=== PATIENT | female | born 1985 | race African-American/Black ===

== ENCOUNTER 2016-05-25 18:27 | Emergency (ER) | payer OTHER ==
[2016-05-25 18:43] VITALS: BP 107/70
--- NOTE | 2016-05-25 20:01 | UC ---
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 SINCE THAT TIME PAIN WITH TWISTING, RADIATES FROM LOW BACK DOWN INTO LEFT LEG. NO FEVER. NO LOSS OF CONTROL OF BLADDER OR BOWELS. - History of Current Complaint Chief Complaint: UCBackPain Stated Complaint: BACK PAIN Time Seen by Provider: 05/25/16 18:55 Hx Obtained From: Patient Hx Last Menstrual Period: depo Onset/Duration: Sudden Onset, Lasting Days, Still Present Timing: Intermittent Severity Initially: Moderate Severity Currently: Moderate Pain Intensity: 5 Pain Scale Used: 0-10 Numeric Back Pain: Is Discrete @ - LEFT LOW BACK, Radiates To - LEFT LEG Character: Dull, Aching, Spasmodic Aggravating: Movement, Lifting, Bending Alleviating: Position Associated Signs And Symptoms: Negative: Swelling, Redness, Fever, Numbness, Bladder Incontinence, Bowel Incontinence Related History: Previous Back Injury - Risk Factors AAA Risk Factors: Negative TAD Risk Factors: Negative Cauda Equina Risk Factors: Negative Epidural Abscess Risk Factors: Negative - Allergies/Home Medications Allergies/Adverse Reactions: Allergies Allergy/AdvReac Type Severity Reaction Status Date / Time No Known Allergies Allergy Verified 05/25/16 18:36 PMH/Surg Hx/FS Hx/Imm Hx Previously Healthy: Yes Endocrine History Of: Denies: Diabetes, Thyroid Disease, Hyperthyroidism, Hypothyroidism, Dyslipidemia Cardiovascular History Of: Denies: Cardiac Disorders, Hypertension, Pacemaker/ICD, Myocardial Infarction , Congestive Heart Failure, Atrial Fibrillation, Deep Vein Thrombosis, Bleeding Disorders Respiratory History Of: Denies: COPD, Asthma, Bronchitis, Pneumonia, Pulmonary Embolism GI/ History Of: Reports: Gastroesophageal Reflux - With certain foods. Denies: Ulcer, Gastrointestinal Bleed, Gall Bladder Disease, Kidney Stones, Diverticulitis, Renal Disease, Urosepsis Neurological History Of: Denies: TIA, CVA, Dementia, Seizures, Migraine Psychological History Of: Denies: Anxiety, Depression, Bipolar Disorder, Schizophrenia, Post Traumatic Stress Disorder Cancer History Of: Denies: Lung Cancer, Colorectal Cancer, Breast Cancer, Prostate Cancer, Cervical Cancer Other History Of: Negative For: HIV, Hepatitis B, Hepatitis C, Anticoagulant Therapy - Surgical History Surgical History: Yes Surgery Procedure, Year, and Place: 2 C-SECTIONS, TONSILLECTOMY - Family History Known Family History: Positive: Cardiac Disease, Hypertension, Diabetes - Social History Occupation: Employed Full-time Lives: With Family Alcohol Use: None Substance Use Type: None Smoking Status (MU): Light Every Day Tobacco Smoker Type: Cigarettes Amount Used/How Often: 1/2 ppd Household Exposure Type: Cigarettes Cessation Counseling: Patient Advised to Stop - Immunization History Most Recent Influenza Vaccination: none Review of Systems Constitutional: Negative Skin: Negative Eyes: Negative ENT: Negative Respiratory: Negative Cardiovascular: Negative Gastrointestinal: Negative Genitourinary: Negative Motor: Negative Neurovascular: Negative Musculoskeletal: Arthralgia, Myalgia Neurological: Negative Psychological: Negative All Other Systems Reviewed And Are Negative: Yes Physical Exam Triage Information Reviewed: Yes Appearance: Well-Appearing, No Pain Distress, Well-Nourished Vital Signs: Initial Vital Signs Temp 97.3 F 05/25/16 18:38 Pulse 81 05/25/16 18:38 Resp 18 05/25/16 18:38 BP 107/70 05/25/16 18:38 Pulse Ox 100 05/25/16 18:38 Vital Signs Reviewed: Yes Eye Exam: Normal Eyes: Positive: Conjunctiva Clear ENT Exam: Normal ENT: Positive: Normal ENT inspection, Hearing grossly normal, TMs normal Dental Exam: Normal Neck exam: Normal Respiratory Exam: Normal Respiratory: Positive: Chest non-tender, Lungs clear, Normal breath sounds, No respiratory distress, No accessory muscle use Cardiovascular Exam: Normal Cardiovascular: Positive: RRR, No Murmur, Pulses Normal, Brisk Capillary Refill Abdominal Exam: Normal Abdomen Description: Positive: Nontender, No Organomegaly Musculoskeletal: Positive: Strength Intact, ROM Intact, No Edema, Other: - POSITIVE LEFT STRAIGHT LEG RAISE 15DEGREES; RIGHT [id number] LEG RAISE NEGATIVE Neurological Exam: Normal Psychological Exam: Normal Skin Exam: Normal Back Pain Course/Dx - Differential Dx/Diagnosis Differential Diagnosis/HQI/PQRI: Strain, Sprain Provider Diagnoses: LOW BACK STRAIN. LEFT SIDED SCIATICA Discharge - Discharge Plan Condition: Stable Disposition: HOME Prescriptions: Cyclobenzaprine TAB* [Flexeril TAB*] 10 mg PO TID PRN #12 tab PRN Reason: Spasms Naproxen [Naproxen 500 MG TABS] 500 mg PO BID #10 tab traMADol TAB* [Ultram*] 50 mg PO Q8H PRN #15 tab MDD three tabs PRN Reason: Pain Patient Education Materials: Sciatica (ED), Low Back Strain (ED), Lower Back Exercises (ED) Forms: *Work Release Referrals: No Primary Care Phys,NOPCP [Primary Care Provider] - Additional Instructions: PHYSICAL THERAPY REFERRAL: You have been prescribed physical therapy. Treatments may include stretching, exercise, application of heat or cold, and other modalities. After an injury, PT can reduce swelling and pain. In recovery, PT is used to restore mobility and strength. Your specific treatment goals are: Reduction of Swelling (EGS, US, ice as needed) ___x__ Pain Reduction (EGS, US, ice as needed) ____x_ TENS Pack Fitting and Instruction Wound Hydrotherapy ___x__ Preservation of Mobility ___x__ Sikh of Mobility ___x__ Strength Sikh ____x_ Work or Sports Hardening This instruction sheet also serves as your PHYSICAL THERAPY REFERRAL! Please take it with you to the therapist, so he/she will be aware of your diagnosis and treatment plan. You may see the physical therapist of your choice for these treatments, but may wish to check with your insurance to be sure the provider you select is covered. It's important to see the doctor to whom you have been referred for follow up.
== END 2016-05-25 19:42 | disposition home or self-care (01) ==
LOC: UCEAST 18:27
DX: S39.012A Strain of muscle, fascia and tendon of lower back, initial encounter (principal); X50.0XXA Overexertion from strenuous movement or load, initial encounter; Y93.F2 Activity, caregiving, lifting; Y92.129 Unspecified place in nursing home as the place of occurrence of the external cause; Y99.0 Civilian activity done for income or pay; M54.32 Sciatica, left side; F17.210 Nicotine dependence, cigarettes, uncomplicated
CPT/HCPCS: 99212; G0463

== ENCOUNTER 2016-07-28 11:18 | Emergency (ER) | payer OTHER ==
[2016-07-28 12:47] VITALS: BP 135/68
--- NOTE | 2016-07-28 12:51 | UC ---
Throat Pain/Nasal Cal HPI - HPI Summary HPI Summary: works nights as a nurses aid, has sorethroat, body aches, chills and cough no influenza vaccine this year - History of Current Complaint Chief Complaint: UCRespiratory Stated Complaint: HEADACHE THROAT PAIN Hx Obtained From: Patient Hx Last Menstrual Period: depo ?: No Onset/Duration: Sudden Onset, Lasting Days Severity: Moderate Cough: Productive Associated Signs & Symptoms: Positive: Sinus Discomfort, Nasal Discharge, Other - body aches - Allergies/Home Medications Allergies/Adverse Reactions: Allergies Allergy/AdvReac Type Severity Reaction Status Date / Time No Known Allergies Allergy Verified 05/25/16 18:36 Home Medications: Home Medications Ibuprofen TAB* [Motrin TAB* 800 MG] 800 mg PO ONCE 07/28/16 [History Confirmed 07/28/16] PMH/Surg Hx/FS Hx/Imm Hx Previously Healthy: No Endocrine History Of: Denies: Diabetes, Thyroid Disease, Hyperthyroidism, Hypothyroidism, Dyslipidemia Cardiovascular History Of: Denies: Cardiac Disorders, Hypertension, Pacemaker/ICD, Myocardial Infarction , Congestive Heart Failure, Atrial Fibrillation, Deep Vein Thrombosis, Bleeding Disorders Respiratory History Of: Denies: COPD, Asthma, Bronchitis, Pneumonia, Pulmonary Embolism GI/ History Of: Reports: Gastroesophageal Reflux - With certain foods. Denies: Ulcer, Gastrointestinal Bleed, Gall Bladder Disease, Kidney Stones, Diverticulitis, Renal Disease, Urosepsis Neurological History Of: Denies: TIA, CVA, Dementia, Seizures, Migraine Psychological History Of: Denies: Anxiety, Depression, Bipolar Disorder, Schizophrenia, Post Traumatic Stress Disorder Cancer History Of: Denies: Lung Cancer, Colorectal Cancer, Breast Cancer, Prostate Cancer, Cervical Cancer Other History Of: Negative For: HIV, Hepatitis B, Hepatitis C, Anticoagulant Therapy - Surgical History Surgical History: Yes Surgery Procedure, Year, and Place: 2 C-SECTIONS, TONSILLECTOMY - Family History Known Family History: Positive: Cardiac Disease, Hypertension, Diabetes - Social History Occupation: Employed Full-time Lives: With Family Alcohol Use: None Substance Use Type: None Smoking Status (MU): Light Every Day Tobacco Smoker Type: Cigarettes Amount Used/How Often: 1/2 ppd Have You Smoked in the Last Year: Yes Household Exposure Type: Cigarettes Cessation Counseling: Counseled 3+Min - 10 Min - Immunization History Most Recent Influenza Vaccination: none Review of Systems Constitutional: Negative, Fever, Chills, Fatigue Skin: Negative Eyes: Negative ENT: Sore Throat, Nasal Discharge Respiratory: Cough Cardiovascular: Negative Gastrointestinal: Negative Genitourinary: Negative Motor: Negative Neurovascular: Negative Musculoskeletal: Negative Neurological: Negative Psychological: Negative All Other Systems Reviewed And Are Negative: Yes Physical Exam Triage Information Reviewed: Yes Appearance: Well-Appearing, No Pain Distress, Well-Nourished Vital Signs: Initial Vital Signs Temp 97.7 F 07/28/16 12:43 Pulse 83 07/28/16 12:43 Resp 18 07/28/16 12:43 BP 135/68 07/28/16 12:43 Pulse Ox 99 07/28/16 12:43 Vital Signs Reviewed: Yes Eye Exam: Normal Eyes: Positive: Conjunctiva Clear ENT Exam: Normal ENT: Positive: Normal ENT inspection, Hearing grossly normal, Pharynx normal, TMs normal. Negative: Nasal congestion, Nasal drainage, Tonsillar swelling, Tonsillar exudate, Trismus, Muffled/hoarse voice Dental Exam: Normal Neck exam: Normal Neck: Positive: Supple, Nontender, No Lymphadenopathy Respiratory Exam: Normal Respiratory: Positive: Chest non-tender, Lungs clear, Normal breath sounds, No respiratory distress, No accessory muscle use Cardiovascular Exam: Normal Cardiovascular: Positive: RRR, No Murmur, Pulses Normal, Brisk Capillary Refill Musculoskeletal Exam: Normal Musculoskeletal: Positive: Strength Intact, ROM Intact, No Edema Neurological Exam: Normal Neurological: Positive: Alert, Muscle Tone Normal Psychological Exam: Normal Skin Exam: Normal Diagnostics - Laboratory Diagnostic Studies Completed/Ordered: RST & Influneza A/B (-) Throat Pain/Nasal Course/Dx - Course Assessment/Plan: increase fluids, tylenol, ibuprofen, mucinex d, follow with pcp re-check prn - Differential Dx/Diagnosis Differential Diagnosis/HQI/PQRI: Pharyngitis, Sinusitis, URI Provider Diagnoses: Viral illness,URI Discharge - Discharge Plan Condition: Stable Disposition: HOME Patient Education Materials: Upper Respiratory Infection (ED), Viral Syndrome ( ED) Referrals: [facility] [facility]ERR[facility] [Outside] - 1 Week No Primary Care Phys,NOPCP [Primary Care Provider] -
== END 2016-07-28 13:34 | disposition home or self-care (01) ==
LOC: UCEAST 11:18
DX: B34.9 Viral infection, unspecified (principal); J06.9 Acute upper respiratory infection, unspecified; K21.9 Gastro-esophageal reflux disease without esophagitis; F17.210 Nicotine dependence, cigarettes, uncomplicated
CPT/HCPCS: 87502; 87651; 99211; G0463

== ENCOUNTER 2016-10-04 08:33 | Emergency (ER) | payer SELFPAY ==
[2016-10-04 08:40] VITALS: BP 117/72
--- NOTE | 2016-10-04 09:21 | UC ---
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 HAS HAD PAIN SINCE THEN. NO NUMBNESS OR TINGLING. - History Of Current Complaint Chief Complaint: UCUpperExtremity Stated Complaint: WRIST INJURY Time Seen by Provider: 10/04/16 09:12 Hx Obtained From: Patient Hx Last Menstrual Period: depo shot Onset/Duration: Sudden Onset, Lasting Hours, Still Present Severity Initially: Moderate Severity Currently: Moderate Pain Intensity: 9 - SITTING IN ROOM - AIN NO DISTRESS AT ALL Pain Scale Used: 0-10 Numeric Character Of Pain: Sharp Aggravating Factor(s): Movement Alleviating: Rest Associated Signs And Symptoms: Negative: Swelling, Redness Related History: Dominant Hand Right - Allergies/Home Medications Allergies/Adverse Reactions: Allergies Allergy/AdvReac Type Severity Reaction Status Date / Time No Known Allergies Allergy Verified 05/25/16 18:36 Home Medications: Home Medications Iawrvkb-Cmvswyqxzncro-Tvyjwvlv [Excedrin Extra Strength 250-250-65 mg] 2 tab PO PRN 10/04/16 [History] PMH/Surg Hx/FS Hx/Imm Hx Previously Healthy: Yes Other History Of: Negative For: HIV, Hepatitis B, Hepatitis C, Anticoagulant Therapy - Surgical History Surgical History: Yes Surgery Procedure, Year, and Place: 2 C-SECTIONS, TONSILLECTOMY - Family History Known Family History: Positive: Cardiac Disease, Hypertension, Diabetes - Social History Alcohol Use: None Substance Use Type: None Smoking Status (MU): Light Every Day Tobacco Smoker Type: Cigarettes Amount Used/How Often: 1/2 ppd Have You Smoked in the Last Year: Yes Household Exposure Type: Cigarettes - Immunization History Most Recent Influenza Vaccination: none Review of Systems Constitutional: Negative Skin: Negative Respiratory: Negative Cardiovascular: Negative Gastrointestinal: Negative Musculoskeletal: Arthralgia, Decreased ROM All Other Systems Reviewed And Are Negative: Yes Physical Exam Triage Information Reviewed: Yes Appearance: Well-Appearing, No Pain Distress, Well-Nourished Vital Signs: Initial Vital Signs Temp 98.1 F 10/04/16 08:39 Pulse 88 10/04/16 08:39 Resp 16 10/04/16 08:39 BP 117/72 10/04/16 08:39 Pulse Ox 100 10/04/16 08:39 Vital Signs Reviewed: Yes Eyes: Positive: Conjunctiva Clear ENT: Positive: Hearing grossly normal Neck: Positive: Supple Respiratory: Positive: No respiratory distress, No accessory muscle use Cardiovascular: Positive: Pulses Normal Abdomen Description: Positive: Soft Musculoskeletal: Positive: No Edema, ROM Limited @ - LEFT WRIST, Other: - MINIMALLY TTP LEFT WRIST ULNAR SIDE Neurological: Positive: Alert Psychological: Positive: Age Appropriate Behavior Skin: Negative: rashes Hand/Wrist Course/Dx - Differential Dx/Diagnosis Provider Diagnoses: LEFT WRIST SPRAIN Discharge - Discharge Plan Condition: Stable Disposition: HOME Patient Education Materials: Wrist Sprain (ED) Forms: *Work Release Referrals: Emmanuelle Parsons MD [Medical Doctor] - If Needed Additional Instructions: BE SURE TO GO THROUGH SLOW RANGE OF MOTION AND STRETCHING EXERCISES DAILY YOU ARE ABLE TO PREVENT STIFFENING UP AND MAKING THE DISCOMFORT WORSE. WEAR THE SPLINT CONSISTENTLY FOR THE FIRST 2-3 DAYS, THEN NEEDED FOR SUPPORT AND COMFORT. FOLLOW-UP WITH ORTHO IF YOU ARE NOT IMPROVING EXPECTED OVER THE NEXT 1-2 WEEKS. CALL THE NUMBER BELOW FOR ASSISTANCE IN ESTABLISHING WITH A PCP An additional resource available to assist in finding the appropriate physician for your health care needs is the [facility] ([facility]). You may contact them by calling [phone].
== END 2016-10-04 09:33 | disposition home or self-care (01) ==
LOC: UCEAST 08:33
DX: S63.502A Unspecified sprain of left wrist, initial encounter (principal); X58.XXXA Exposure to other specified factors, initial encounter; Y93.F9 Activity, other caregiving; Y92.10 Unspecified residential institution as the place of occurrence of the external cause; Y99.0 Civilian activity done for income or pay
CPT/HCPCS: 99212; G0463

== ENCOUNTER 2017-01-01 19:37 | Emergency (ER) | payer OTHER ==
[2017-01-01 19:45] VITALS: BP 123/80
[2017-01-01] MEDS ORDERED: Albuterol HFA INHALER* 8 gm MDI INH PRN (19:57)
[2017-01-01] MEDS ORDERED: Amoxicillin/Clavulanate TAB* 875 MG PO ONE ×2 (19:58→20:10)
[2017-01-01] MEDS ORDERED: Albuterol HFA INHALER* 8 gm MDI INH ONE (20:07)
--- NOTE | 2017-01-01 20:45 | UC ---
Fred Prince Nikita, scribed for Pieter Meza MD on 01/01/17 at 2010 . General HPI - HPI Summary HPI Summary: This patient is a 31 year old F presenting to [facility] with a chief complaint of a nonproductive cough and a NORTON (frontal) since a week ago. The patient rates the pain 10/10 in severity. Symptoms aggravated by lying down. Symptoms alleviated by nothing. Patient reports cold like symptoms (nonproductive cough from the chest), congestion in the sinuses, head and chest, sore throat (resolved a few days ago), SOB, wheezing (for a few days), and watery eyes. Pt denies have asthma. 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 Pt is a smoker and non -drinker. Pt doesnt know if she is . PMHx of bronchitis. - History of Current Complaint Chief Complaint: UCGeneralIllness Stated Complaint: COUGH,HEADACHE Hx Obtained From: Patient Hx Last Menstrual Period: Depo Provera Onset/Duration: Sudden Onset, Lasting Weeks - 1 week ago, Still Present Timing: Constant Onset Severity: Severe Current Severity: Severe Pain Intensity: 10 Aggravating: Lying down. Alleviating: Nothing. Associated Signs & Symptoms: Positive: Other - Patient reports cold like symptoms (nonproductive cough from the chest), congestion in the sinuses, head and chest, sore throat (resolved a few days ago), SOB, wheezing (for a few days) , and watery eyes. - Allergy/Home Medications Allergies/Adverse Reactions: Allergies Allergy/AdvReac Type Severity Reaction Status Date / Time No Known Allergies Allergy Verified 05/25/16 18:36 PMH/Surg Hx/FS Hx/Imm Hx Other Cardiovascular History: NEGATIVE: CAD Respiratory History: Bronchitis Other History Of: Negative For: HIV, Hepatitis B, Hepatitis C, Anticoagulant Therapy - Surgical History Surgical History: Yes Surgery Procedure, Year, and Place: 2 C-SECTIONS, TONSILLECTOMY - Family History Known Family History: Positive: Cardiac Disease, Hypertension, Diabetes - Social History Alcohol Use: None Substance Use Type: None Smoking Status (MU): Light Every Day Tobacco Smoker Type: Cigarettes Amount Used/How Often: 5 cigs per day Have You Smoked in the Last Year: Yes Household Exposure Type: Cigarettes - Immunization History Most Recent Influenza Vaccination: none Review of Systems Eyes: Other - watery eyes ENT: Sore Throat, Sinus Congestion Respiratory: Shortness Of Breath, Cough - Non-productive in the chest, Other - Congestion in head and chest, wheezing Cardiovascular: Other Neurological: Headache - Frontal All Other Systems Reviewed And Are Negative: Yes Physical Exam Triage Information Reviewed: Yes Vital Signs: Initial Vital Signs Temp 97.9 F 01/01/17 19:40 Pulse 91 01/01/17 19:40 Resp 18 01/01/17 19:40 BP 123/80 01/01/17 19:40 Pulse Ox 100 01/01/17 19:40 - Additional Comments The patient is in no acute distress. The skin is warm and dry. HEENT: The pupils are equal and reactive. Post nasal drip. Erythema in throat. The tympanic membranes are intact. No rhinorrhea. Left frontal sinuses are are tenderness to percussion. Neck is supple. Respiratory: Lungs have diffuse wheezing throughout. No rhonchi. No rales. Cardiovascular: Heart is regular rate and rhythm. Musculoskeletal: No swelling in legs. Course/Dx - Course Course Of Treatment: This patient is a 31 year old F presenting to [facility] with a chief complaint of a nonproductive cough and a NORTON (frontal) since a week ago. The patient rates the pain 10/10 in severity. Symptoms aggravated by lying down. Symptoms alleviated by nothing. Patient reports cold like symptoms ( nonproductive cough from the chest), congestion in the sinuses, head and chest, sore throat (resolved a few days ago), SOB, wheezing (for a few days), and watery eyes. Pt denies have asthma. 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 Pt is a smoker and non-drinker. Pt doesnt know if she is . PMHx of bronchitis. Pt will be discharged home with Antibiotics, Augmentin and an Albuterol inhaler and instructions to follow up with PCP. Pt is agreeable with this plan. - Differential Dx - Multi-Symptom Differential Diagnoses: Other - asthmatic bronchitis, uri Provider Diagnoses: Acute Sinusitis/Bronchitis Discharge - Discharge Plan Condition: Stable Disposition: HOME Prescriptions: Amoxicillin/Clavulanate TAB* [Augmentin TAB 875*] 875 mg PO BID #20 tab Patient Education Materials: Sinusitis (ED), Acute Bronchitis (ED) Referrals: Vipul Florez MD [Primary Care Provider] - 3 Days The documentation as recorded by the Fred oleary Nikita accurately reflects the service I personally performed and the decisions made by me, Pieter Meza MD.
[2017-01-01] MEDS ORDERED: Albuterol HFA INHALER* 8 gm MDI INH SCH (21:00)
== END 2017-01-01 20:14 | disposition home or self-care (01) ==
LOC: UCEAST 19:37
DX: J01.90 Acute sinusitis, unspecified (principal); J40 Bronchitis, not specified as acute or chronic; F17.210 Nicotine dependence, cigarettes, uncomplicated
CPT/HCPCS: 99213; A9270-GY; G0463

== ENCOUNTER 2017-05-27 07:42 | Emergency (ER) | payer OTHER ==
[2017-05-27 07:57] VITALS: BP 119/79
--- NOTE | 2017-05-27 08:43 | UC ---
Back Pain HPI - HPI Summary HPI Summary: 32 y/o female presents to the urgent care c/o lower back pain Pt here with severe pain radiating from lower back down L leg. 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 - History of Current Complaint Chief Complaint: UCBackPain Stated Complaint: BACK AND LEG PAIN Time Seen by Provider: 05/27/17 08:38 Hx Last Menstrual Period: does not get them Pain Intensity: 7 - Allergies/Home Medications Allergies/Adverse Reactions: Allergies Allergy/AdvReac Type Severity Reaction Status Date / Time No Known Allergies Allergy Verified 05/27/17 07:49 PMH/Surg Hx/FS Hx/Imm Hx Other History Of: Negative For: HIV, Hepatitis B, Hepatitis C, Anticoagulant Therapy - Surgical History Surgical History: Yes Surgery Procedure, Year, and Place: 2 C-SECTIONS, TONSILLECTOMY - Family History Known Family History: Positive: Cardiac Disease, Hypertension, Diabetes - Social History Alcohol Use: None Substance Use Type: None Smoking Status (MU): Light Every Day Tobacco Smoker Type: Cigarettes Amount Used/How Often: 5 cigs per day Have You Smoked in the Last Year: Yes Household Exposure Type: Cigarettes - Immunization History Most Recent Influenza Vaccination: none Physical Exam Triage Information Reviewed: Yes Vital Signs: Initial Vital Signs Temp 97.9 F 05/27/17 07:50 Pulse 98 05/27/17 07:50 Resp 16 05/27/17 07:50 BP 119/79 05/27/17 07:50 Pulse Ox 100 05/27/17 07:50 - Additional Comments General: Patient is a well developed --- without any distress that is laying comfortably in the stretcher. Skin: [place], warm, dry HEAD AND FACE: No signs of trauma. EYES: PERRLA, EOMI x 2. EARS: Hearing grossly intact. MOUTH: Oropharynx within normal limits. NECK: Supple, trachea is midline, no adenopathy, no JVD. CHEST: Symmetric, no tenderness at palpation LUNGS: CTA bilaterally, no rales, rhonchi or wheezing CVS: RRR, no murmur, rub, or gallop ABDOMEN: soft and Nontender without masses, no guarding or rebound. Bowel sounds are active. No Hepato-splenomegaly. No signs of inguinal hernias. BACK: Patient walked into the urgent care room with symmetric ambulation, No signs of limping, antalgic, able to bear weight. No signs of trauma, no soft tissue or muscle tenderness, ---- spasm in the Paraspinal muscles of the (lumbar ) spine. No masses palpated. Point tenderness at ----, No CVAT, no flank ecchymosis . No sacroiliac notch tenderness, No saddle anesthesia ROM: flexion/ extension/ lateral bending and rotation, note if limited or causes pain Straight Leg Raise: positive if radiates below knee at --- degrees. Patellar reflexes: brisk, symmetric Muscle strength lower extremities. Dorsiflexion/ plantar flexion of ankles. Heel/ toe walk Lower extremities: Femoral, popliteal, posterior tibial, and dorsalis pedis pulses with in normal, Rectal: Patient refused the exam. (Normal anal wink, rectal tone within normal limits). Neurological: WNL Psychological: WNL Skin: dry and warm Discharge - Discharge Plan Referrals: Vipul Florez MD [Primary Care Provider] -
[2017-05-27] MEDS ORDERED: Ibuprofen TAB* 400 MG PO ONE (08:54)
--- NOTE | 2017-05-27 09:22 | RAD ---
INDICATION: Low back pain. Injury. COMPARISON: None TECHNIQUE: Routine PA, lateral, and oblique imaging was performed . FINDINGS: Bones: There are no acute bony findings. There are no significant osteoarthritic findings. 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 IMPRESSION: NO ACUTE BONY FINDINGS.
== END 2017-05-27 09:39 | disposition home or self-care (01) ==
LOC: UCEAST 07:42
DX: M54.5 Low back pain (principal); F17.210 Nicotine dependence, cigarettes, uncomplicated
CPT/HCPCS: 72110; 99212; A9270-GY; G0463

== ENCOUNTER 2018-09-15 08:46 | Emergency (ER) | payer OTHER ==
[2018-09-15 08:57] VITALS: BP 129/86
[2018-09-15] MEDS ORDERED: Penicillin VK TAB* 250 MG PO ONE (09:08)
--- NOTE | 2018-09-15 09:09 | UC ---
[facility] HPI - HPI Summary HPI Summary: 33 yo female broke a left lower tooth about a month ago now motrin not helping no fever or facial swelling no n/v/d - History of Current Complaint Chief Complaint: UCDentalProblem Stated Complaint: TOOTH PAIN Time Seen by Provider: 09/15/18 09:01 Hx Obtained From: Patient Hx Last Menstrual Period: 3 years ago - gets depo shot Onset/Duration: Gradual Onset Severity: Severe Pain Intensity: 9 Pain Scale Used: 0-10 Numeric Aggravating Factor(s): Heat, Cold, Chewing Alleviating Factor(s): Nothing Dental: 1 - fx with exposed root, many absent teeth - Allergies/Home Medications Allergies/Adverse Reactions: Allergies Allergy/AdvReac Type Severity Reaction Status Date / Time No Known Allergies Allergy Verified 09/15/18 08:57 Home Medications: Home Medications Ibuprofen TAB* [Advil TAB*] 800 mg PO ONCE PRN 09/15/18 [History Confirmed 09/15] PMH/Surg Hx/FS Hx/Imm Hx Previously Healthy: Yes Other History Of: Negative For: HIV, Hepatitis B, Hepatitis C, Anticoagulant Therapy - Surgical History Surgical History: Yes Surgery Procedure, Year, and Place: 2 C-SECTIONS, TONSILLECTOMY - Family History Known Family History: Positive: Cardiac Disease, Hypertension, Diabetes - Social History Alcohol Use: Occasionally Substance Use Type: None Smoking Status (MU): Light Every Day Tobacco Smoker Type: Cigarettes Amount Used/How Often: 5 cigs per day Have You Smoked in the Last Year: Yes Household Exposure Type: Cigarettes - Immunization History Most Recent Influenza Vaccination: none Review of Systems All Other Systems Reviewed And Are Negative: Yes Constitutional: Positive: Negative Skin: Positive: Negative Eyes: Positive: Negative ENT: Positive: Dental Pain Respiratory: Positive: Negative Cardiovascular: Positive: Negative Gastrointestinal: Positive: Negative Genitourinary: Positive: Negative Motor: Positive: Negative Neurovascular: Positive: Negative Musculoskeletal: Positive: Negative Neurological: Positive: Negative Psychological: Positive: Negative Physical Exam Triage Information Reviewed: Yes Appearance: Well-Appearing, No Pain Distress, Well-Nourished Vital Signs: Initial Vital Signs Temp 98.2 F 09/15/18 08:48 Pulse 94 09/15/18 08:48 Resp 16 09/15/18 08:48 BP 129/86 09/15/18 08:48 Pulse Ox 100 09/15/18 08:48 Vital Signs Reviewed: Yes Eye Exam: Normal Eyes: Positive: Conjunctiva Clear ENT: Positive: Hearing grossly normal, Uvula midline. Negative: Nasal congestion, Nasal drainage, Tonsillar swelling, Tonsillar exudate, Dental tenderness, Sinus tenderness Dental: Positive: Other: - see image Neck: Positive: Supple, Nontender, No Lymphadenopathy Respiratory: Positive: Lungs clear, Normal breath sounds, No respiratory distress Cardiovascular: Positive: RRR, No Murmur Musculoskeletal: Positive: ROM Intact, No Edema Neurological: Positive: Alert Psychological Exam: Normal Skin Exam: Normal Dental Complaint Course/Dx - Differential Dx/Diagnosis Provider Diagnosis: Pain, dental Discharge - Sign-Out/Discharge Documenting (check all that apply): Patient Departure All imaging exams completed and their final reports reviewed: No Studies - Discharge Plan Condition: Stable Disposition: HOME Prescriptions: HYDROcodone/ACETAMIN 5-325 MG* [[place] 5-325 TAB*] 1 tab PO Q4H PRN #10 tab MDD 4 PRN Reason: Pain Penicillin VK 500 MG TAB(NF) [Penicillin VK 500 mg Tab] 500 mg PO QID #28 tab Patient Education Materials: Toothache (ED) Referrals: Vipul Florez MD [Primary Care Provider] - Additional Instructions: see dentist first available appt recheck for new or worsening symptoms continue ibuprofen - Billing Disposition and Condition Condition: STABLE Disposition: Home
== END 2018-09-15 09:23 | disposition home or self-care (01) ==
LOC: UCEAST 08:46
DX: K08.89 Other specified disorders of teeth and supporting structures (principal); K03.81 Cracked tooth; F17.210 Nicotine dependence, cigarettes, uncomplicated
CPT/HCPCS: 99212; A9270-GY; G0463

== ENCOUNTER 2018-10-06 16:56 | Emergency (ER) | payer OTHER ==
[2018-10-06 17:16] VITALS: BP 116/76
--- NOTE | 2018-10-06 17:21 | UC ---
Throat Pain/Nasal Cal HPI - HPI Summary HPI Summary: sore throat body aches and fever began yesterday---daughter had strep last week - History of Current Complaint Chief Complaint: UCGeneralIllness Stated Complaint: SORETHROAT/FEVER/HEADACHE Time Seen by Provider: 10/06/18 17:11 Hx Obtained From: Patient Hx Last Menstrual Period: 4 years ago ?: No Onset/Duration: Sudden Onset, Lasting Days - 1, Still Present Pain Intensity: 7 Pain Scale Used: 0-10 Numeric Cough: None Associated Signs & Symptoms: Positive: Fever Related History: T & A - Allergies/Home Medications Allergies/Adverse Reactions: Allergies Allergy/AdvReac Type Severity Reaction Status Date / Time No Known Allergies Allergy Verified 10/06/18 17:16 PMH/Surg Hx/FS Hx/Imm Hx Previously Healthy: No GI/ History: Gastroesophageal Reflux Other History Of: Negative For: HIV, Hepatitis B, Hepatitis C, Anticoagulant Therapy - Surgical History Surgical History: Yes Surgery Procedure, Year, and Place: 2 C-SECTIONS, TONSILLECTOMY - Family History Known Family History: Positive: Cardiac Disease, Hypertension, Diabetes - Social History Occupation: Employed Full-time Lives: With Family Alcohol Use: Occasionally Substance Use Type: None Smoking Status (MU): Light Every Day Tobacco Smoker Type: Cigarettes Amount Used/How Often: 5 cigs per day Have You Smoked in the Last Year: Yes Household Exposure Type: Cigarettes - Immunization History Most Recent Influenza Vaccination: none Review of Systems All Other Systems Reviewed And Are Negative: Yes Constitutional: Positive: Fever, Chills, Fatigue Skin: Positive: Negative Eyes: Positive: Negative ENT: Positive: Sore Throat Respiratory: Positive: Negative Cardiovascular: Positive: Negative Gastrointestinal: Positive: Negative Genitourinary: Positive: Negative Motor: Positive: Negative Neurovascular: Positive: Negative Musculoskeletal: Positive: Negative Neurological: Positive: Negative Psychological: Positive: Negative Is Patient Immunocompromised?: No Physical Exam Triage Information Reviewed: Yes Appearance: No Pain Distress, Well-Nourished, Ill-Appearing - mild Vital Signs: Initial Vital Signs Temp 100.1 F 10/06/18 17:11 Pulse 110 10/06/18 17:11 Resp 17 10/06/18 17:11 BP 116/76 10/06/18 17:11 Pulse Ox 98 10/06/18 17:11 Vital Signs Reviewed: Yes Eye Exam: Normal Eyes: Positive: Conjunctiva Clear ENT Exam: Normal ENT: Positive: Normal ENT inspection, Hearing grossly normal, Pharynx normal, TMs normal, Uvula midline. Negative: Nasal congestion, Trismus, Muffled voice, Hoarse voice, Dental tenderness, Sinus tenderness Dental Exam: Normal Neck exam: Normal Neck: Positive: Supple, Nontender, No Lymphadenopathy Respiratory Exam: Normal Respiratory: Positive: Chest non-tender, Lungs clear, Normal breath sounds, No respiratory distress, No accessory muscle use Cardiovascular Exam: Normal Cardiovascular: Positive: RRR, No Murmur, Pulses Normal, Brisk Capillary Refill Musculoskeletal Exam: Normal Musculoskeletal: Positive: Strength Intact, ROM Intact, No Edema Neurological Exam: Normal Neurological: Positive: Alert, Muscle Tone Normal Psychological Exam: Normal Skin Exam: Normal Diagnostics - Laboratory Lab Results: RST + Throat Pain/Nasal Course/Dx - Course Course Of Treatment: amoxicillin, tylenol, ibuprofen increase fluids rest follow with pcp - Differential Dx/Diagnosis Provider Diagnosis: Strep pharyngitis Discharge - Sign-Out/Discharge Documenting (check all that apply): Patient Departure All imaging exams completed and their final reports reviewed: No Studies - Discharge Plan Condition: Stable Disposition: HOME Prescriptions: Amoxicillin PO (*) [Amoxicillin 500 MG CAP*] 500 mg PO Q12H #19 cap Patient Education Materials: Strep Throat (ED) Forms: *Work Release Referrals: Vipul Florez MD [Primary Care Provider] - If Needed - Billing Disposition and Condition Condition: STABLE Disposition: Home - Attestation Statements Provider Attestation: I was available for consult. This patient was seen by the JOHN. The patient was not presented to , seen by or examined by ms -Hever Randolph MD
[2018-10-06] MEDS ORDERED: Amoxicillin PO (*) 500 MG CAP PO ONE (17:30)
== END 2018-10-06 17:46 | disposition home or self-care (01) ==
LOC: UCEAST 16:56
DX: J02.0 Streptococcal pharyngitis (principal); K21.9 Gastro-esophageal reflux disease without esophagitis; F17.210 Nicotine dependence, cigarettes, uncomplicated
CPT/HCPCS: 87651; 99212; A9270-GY; G0463